=== PATIENT | male | born 1975 | race Caucasian/White ===

== ENCOUNTER 2020-12-21 11:30 | Emergency (ER) | payer SELFPAY ==
[~2020-12-21] VITALS: Ht 162.6 cm; Wt 74.4 kg
[2020-12-21] MEDS ORDERED: TDAP DIPH,PERTUSS,TET VAC/PF 0.5 ML DISP.SYRIN IM ONE ×2 (12:15→13:15)
[2020-12-21] MEDS ORDERED: HYDROCODONE/APAP 5-325MG TABLET PO ONE (12:15)
[2020-12-21] MEDS ORDERED: LIDOCAINE HCL 1% 20 ML VIAL TP ONE (12:15)
[2020-12-21] MEDS ORDERED: NEOMY/BACITRA/POLYMYXIN B OINT UD PACKET TP ONE (13:06)
[2020-12-21] MEDS ORDERED: HYDROCODONE/APAP 5-325MG TABLET ONE (13:14)
--- NOTE | 2020-12-21 13:46 | NUR ---
45 years old male with left hand laceration s/p laceration repair, suture intact tolerated well patient informed to return in 10 days for wound recheck d/c home with instructions after care reviewed understood left er ambulatory with steady gait.
[2020-12-21 13:48] VITALS: BP 130/70
== END 2020-12-21 13:49 | disposition home or self-care (01) ==
LOC: ER 11:32
DX: S61.412A Laceration without foreign body of left hand, initial encounter (principal); W26.0XXA Contact with knife, initial encounter; Y92.89 Other specified places as the place of occurrence of the external cause
CPT/HCPCS: 12002; 90471; 90715; 99283; J3490; A4217; A4663

== ENCOUNTER 2020-12-31 14:10 | Emergency (ER) | payer SELFPAY ==
[~2020-12-31] VITALS: Ht 167.6 cm; Wt 72.6 kg
--- NOTE | 2020-12-31 14:22 | NUR ---
Patient discharged to home in stable condition. Written and verbal after care instructions given. Patient verbalizes understanding of instructions. Stressed follow up or return to ER for worsening s/s.
[2020-12-31] MEDS ORDERED: NEOMY/BACITRA/POLYMYXIN B OINT UD PACKET TP ONE (14:37)
--- NOTE | 2020-12-31 14:37 | NUR ---
left hand suture removed no redness, no drainage, foul odor tolerated well, condition stable d/c home with instructions after care reviewed understood.
[2020-12-31 15:04] VITALS: BP 130/70
== END 2020-12-31 15:05 | disposition home or self-care (01) ==
LOC: ER 14:10
DX: S61.412D Laceration without foreign body of left hand, subsequent encounter (principal); W26.0XXD Contact with knife, subsequent encounter
CPT/HCPCS: A4663